=== PATIENT | female | born 1940 | race Caucasian/White ===

== ENCOUNTER → 2016-10-24 | Outpatient (CLI) | payer MEDICARE, OTHER ==
[~2016-10-24] MED LIST: ATROVENT HFA12.9 GM INH; AVAPRO150 MG PO; BYSTOLIC10 MG PO; CLARITIN10 MG PO; COUMADIN4 MG PO; COUMADIN6 MG PO; LASIX20 MG PO; LEVO-T137 MCG PO; TRAVATAN Z5 ML EYEBOTH; VITAMIN C250 MG PO
== END | disposition short-term general hospital (02) ==
LOC: CLCARD 07:18
DX: I50.20 Unspecified systolic (congestive) heart failure (principal); I87.2 Venous insufficiency (chronic) (peripheral); I42.9 Cardiomyopathy, unspecified; I10 Essential (primary) hypertension; E78.5 Hyperlipidemia, unspecified; I48.0 Paroxysmal atrial fibrillation; J44.9 Chronic obstructive pulmonary disease, unspecified; R21 Rash and other nonspecific skin eruption

== ENCOUNTER → 2016-11-21 | Outpatient (CLI) | payer MEDICARE, OTHER ==
[~2016-11-21] MED LIST changes: +PROVENTIL2.5 MG/3 M INH
== END | disposition short-term general hospital (02) ==
LOC: CLCARD 10:20
DX: I11.0 Hypertensive heart disease with heart failure (principal); I50.20 Unspecified systolic (congestive) heart failure; I87.2 Venous insufficiency (chronic) (peripheral); R21 Rash and other nonspecific skin eruption; R60.0 Localized edema; I42.9 Cardiomyopathy, unspecified; I48.0 Paroxysmal atrial fibrillation; J44.9 Chronic obstructive pulmonary disease, unspecified; E78.5 Hyperlipidemia, unspecified